=== PATIENT | female | born 1990 | race African-American/Black ===

== ENCOUNTER → 2016-10-28 | Outpatient (CLI) | payer BC ==
[2006-05-05 08:00] VITALS: TEMP 98.2
[~2016-10-28] MED LIST: ACNE MED; ATARAX 10MG10 MG/TAB PO; CARAFATE 1GM1 G PO; DESYREL 50MG50 MG PO; FLEXERIL10 MG PO; LORTAB 5/500 501 TAB PO; MACRODANTIN100 PO; MYRBETR50MG PO; NO HOME MEDICATIONS; NORCO 325 MG-51 TAB PO; NORCOELIX PO; PHENERGAN 25 TA25 MG PO; PHENERGAN25 MG RC; PRILOTC PO; PROTONIX 40MG T40 MG PO; PYRIDIUM 100MG100 MG PO; SENOKOT S 50 MG1 TAB PO; ZANTAC 150MG T150 MG PO; ZOFRAN 4MG T4 MG/TAB PO
== END ==
LOC: COL.RAD 16:23
DX: R10.84 Generalized abdominal pain (principal); D37.6 Neoplasm of uncertain behavior of liver, gallbladder and bile ducts; M54.89 Other dorsalgia; M43.06 Spondylolysis, lumbar region

== ENCOUNTER 2016-11-12 13:29 | Day surgery (SDC) | payer BC ==
[2008-12-11 17:18] VITALS: BP 118/71
[~2016-11-12] VITALS: Ht 162.6 cm; Wt 66.6 kg
[~2016-11-12 13:29] MED LIST changes: -ATARAX 10MG10 MG/TAB PO; -CARAFATE 1GM1 G PO; -DESYREL 50MG50 MG PO; -MACRODANTIN100 PO; -MYRBETR50MG PO; -NORCOELIX PO; -PRILOTC PO; -PROTONIX 40MG T40 MG PO; -PYRIDIUM 100MG100 MG PO; -SENOKOT S 50 MG1 TAB PO; -ZANTAC 150MG T150 MG PO; -ZOFRAN 4MG T4 MG/TAB PO
[2016-11-12 15:20] VITALS: BP 128/85; PULSE 85; TEMP 98.3
[2016-11-12] MEDS ORDERED: PRILOTC PO (15:22)
[2016-11-12] MEDS ORDERED: CARAFATE 1GM1 G PO (15:23)
[2016-11-12 16:15] VITALS: BP 115/86; PULSE 91; TEMP 98.2
[2016-11-12] MEDS ORDERED: MACRODANTIN100 PO (16:26)
[2016-11-12] MEDS ORDERED: SENOKOT S 50 MG1 TAB PO (16:27)
[2016-11-12] MEDS ORDERED: PYRIDIUM 100MG100 MG PO (16:28)
[2016-11-12] MEDS ORDERED: NORCO 325 MG-51 TAB PO (16:28)
[2016-11-12 16:30] VITALS: BP 124/78; PULSE 97
[2016-11-12 16:45] VITALS: BP 127/79; PULSE 95
== END 2016-11-12 17:31 | disposition home or self-care (01) ==
LOC: SDCO 13:29
DX: R31.0 Gross hematuria (principal); N32.89 Other specified disorders of bladder; R10.2 Pelvic and perineal pain; R30.0 Dysuria; Z87.440 Personal history of urinary (tract) infections
CPT/HCPCS: J0690; J1100; J2175; J2405; J2704; J3010; J7120; Q9967

== ENCOUNTER 2017-04-07 11:02 | Day surgery (SDC) | payer BC ==
[2008-12-11 17:18] VITALS: BP 118/71
[~2017-04-07] VITALS: Ht 167.6 cm; Wt 76.4 kg
[2017-04-07] VITALS (9 sets, daily range): BP systolic 119–136; BP diastolic 68–86; PULSE 51–73; TEMP 98–98.5
[~2017-04-07 11:02] MED LIST changes: +CARAFATE 1GM1 G PO; +MACRODANTIN100 PO; +PRILOTC PO; +PYRIDIUM 100MG100 MG PO; +SENOKOT S 50 MG1 TAB PO
[2017-04-07] MEDS ORDERED: ZANTAC 150MG T150 MG PO (11:28)
[2017-04-07] MEDS ORDERED: DESYREL 50MG50 MG PO (11:28)
[2017-04-07] MEDS ORDERED: ATARAX 10MG10 MG/TAB PO (11:29)
[2017-04-07] MEDS ORDERED: PROTONIX 40MG T40 MG PO (11:29)
[2017-04-07] MEDS ORDERED: MYRBETR50MG PO (11:30)
[2017-04-08 01:26] VITALS: BP 143/82; PULSE 68; TEMP 98.4
[2017-04-08 05:06] VITALS: BP 120/64; PULSE 81; TEMP 98.3
[2017-04-08 09:26] VITALS: BP 150/97; PULSE 65; TEMP 97.9
[2017-04-08 13:56] VITALS: BP 118/72; PULSE 79; TEMP 99
[2017-04-08] MEDS ORDERED: NORCOELIX PO (15:01)
[2017-04-08] MEDS ORDERED: ZOFRAN 4MG T4 MG/TAB PO (15:02)
== END 2017-04-08 17:20 | disposition home or self-care (01) ==
LOC: SDCO 11:02 → SURG 18:05 → SDCO 04-08 17:20
DX: D36.0 Benign neoplasm of lymph nodes (principal); K21.9 Gastro-esophageal reflux disease without esophagitis; K44.9 Diaphragmatic hernia without obstruction or gangrene; F32.9 Major depressive disorder, single episode, unspecified
CPT/HCPCS: OP; A9284; C1713; J0690; J1170; J1885; J2405; J2550; J2704; J2710; J3010; J7120

== ENCOUNTER 2018-09-29 16:38 | Emergency (ER) | payer BC ==
[2008-12-11 17:18] VITALS: BP 118/71
[~2018-09-29] VITALS: Ht 162.6 cm; Wt 59.1 kg
[~2018-09-29 16:38] MED LIST changes: +ATARAX 10MG10 MG/TAB PO; +DESYREL 50MG50 MG PO; +MYRBETR50MG PO; +NORCOELIX PO; +PROTONIX 40MG T40 MG PO; +ZANTAC 150MG T150 MG PO; +ZOFRAN 4MG T4 MG/TAB PO
[2018-09-29 16:43] VITALS: TEMP 97.8
[2018-09-29] MEDS ORDERED: DESYREL 100MG100 MG PO (17:24)
[2018-09-29] MEDS ORDERED: PROZAC40 MG PO (17:25)
[2018-09-29] MEDS ORDERED: ATARAX 10MG10 MG/TAB PO (17:25)
[2018-09-29] MEDS ORDERED: INDERAL80 MG PO (17:26)
[2018-09-29] MEDS ORDERED: NORVASC 10MG10 MG PO (17:26)
[2018-09-29] MEDS ORDERED: TOFRANIL 10MG T10 MG PO (17:27)
[2018-09-29] MEDS ORDERED: ADDERALL10 MG PO (17:27)
[2018-09-29] MEDS ORDERED: WELLBUTRIN XL150 MG PO (17:28)
[2018-09-29 18:03] LABS: COLLECTION METHOD CLEAN CATCH
[2018-09-29 18:14] LABS: BASO % 0.5 % (0.0-2.0); EOS # 0.1 (0.0-0.7); EOS % 0.9 % (0-4.0); GRAN # 4.3 (1.4-6.5); GRAN % 67.5 % (42.2-75.2); HEMOGLOBIN 12.4 g/dl (12.5-16.0); LYMPH # 1.4 (1.2-3.4); LYMPH % 21.7 % (20.0-51.0); MEAN CELL VOLUME 88 fl (80.0-100.0); MEAN CORPUSCULAR HEMOGLOBIN 30 pg (27.0-31.0); MEAN CORPUSCULAR HGB CONC 34 g/dl (33.0-37.0); MEAN PLATELET VOLUME 9.3 fl (7.4-10.4); MONO # 0.6 (0.1-0.6); MONO % 8.9 % (1.7-9.3); PLATELET COUNT 296 K/mm3 (130-400); RED BLOOD COUNT 4.15 M/mm3 (4.10-5.30)
[2018-09-29 18:16] LABS: HEMATOCRIT 36.6 % (37.0-47.0); MUCOUS Present /lpf; PH 5 (5-8); SQUAMOUS EPITHELIAL 0-2 /hpf; URINE APPEARANCE Clear; URINE BACTERIA None Seen /hpf; URINE BILIRUBIN Negative (NEGATIVE); URINE BLOOD Negative (NEGATIVE); URINE CALCIUM OXALATE CRYSTAL Present /hpf; URINE COLOR Yellow; URINE GLUCOSE Negative (NEGATIVE); URINE KETONE Negative (NEGATIVE); URINE LEUKOCYTE ESTERASE Negative (NEGATIVE); URINE NITRATE Negative (NEGATIVE); URINE PROTEIN(semi-quant) 1+ (NEGATIVE)
[2018-09-29 18:29] LABS: ALANINE AMINOTRANSFERASE 18 U/L (9-52); ALBUMIN 4.3 gm/dL (3.5-5.0); ALKALINE PHOSPHATASE 61 U/L (50-136); ANION GAP 8 mmol/L (7-16); AST,SGOT 23 U/L (15-37); BILIRUBIN,TOTAL 0.4 mg/dL (0.0-1.0); BLOOD UREA NITROGEN 10 mg/dL (7-17); C-REACTIVE PROTEIN < 0.5 mg/dL (0.0-0.9); CALCIUM 9.3 mg/dL (8.4-10.2); CARBON DIOXIDE 31 mmol/L (22-30); CHLORIDE 100 mmol/L (98-107); CREATININE, serum 0.85 mg/dL (0.52-1.25); GLUCOSE 92 mg/dL (74-106); LIPASE 16 U/L (23-300); POTASSIUM 3.3 mmol/L (3.4-5.0); SODIUM 139 mmol/L (137-145); TOTAL PROTEIN 7.7 gm/dL (6.4-8.2)
[2018-09-29] MEDS ORDERED: ZOFRAN 4MG T4 MG/TAB PO (19:11)
[2018-09-29] MEDS ORDERED: FLAGYL500 MG PO (19:11)
[2018-09-29] MEDS ORDERED: BENTYL 20MG20 MG/TAB PO (19:11)
[2018-09-29 19:12] VITALS: BP 126/95; PULSE 65
== END 2018-09-29 19:17 | disposition home or self-care (01) ==
LOC: COL.ER 16:38
PROVIDERS: Emergency Medicine
DX: N76.0 Acute vaginitis (principal); R11.2 Nausea with vomiting, unspecified; B96.89 Other specified bacterial agents as the cause of diseases classified elsewhere; K21.9 Gastro-esophageal reflux disease without esophagitis; F32.9 Major depressive disorder, single episode, unspecified; F41.9 Anxiety disorder, unspecified; F90.9 Attention-deficit hyperactivity disorder, unspecified type; I10 Essential (primary) hypertension
CPT/HCPCS: J1885; J2405

== ENCOUNTER → 2018-10-28 | Outpatient (CLI) | payer BC ==
[~2018-10-28] MED LIST changes: +ADDERALL10 MG PO; +BENTYL 20MG20 MG/TAB PO; +DESYREL 100MG100 MG PO; +FLAGYL500 MG PO; +INDERAL80 MG PO; +NORVASC 10MG10 MG PO; +PROZAC40 MG PO; +TOFRANIL 10MG T10 MG PO; +WELLBUTRIN XL150 MG PO
== END ==
LOC: COL.RAD 10:30
DX: K76.89 Other specified diseases of liver (principal)

== ENCOUNTER → 2018-12-29 | Outpatient (CLI) | payer BC | LOC: COL.RAD 12:20 | DX: Z01.818 Encounter for other preprocedural examination (principal); M26.69 Other specified disorders of temporomandibular joint; Z98.890 Other specified postprocedural states ==

== ENCOUNTER 2020-04-21 13:45 | Emergency (ER) | payer BC ==
[2008-12-11 17:18] VITALS: BP 118/71
[~2020-04-21] VITALS: Ht 162.6 cm; Wt 65.9 kg
[2020-04-21 13:50] VITALS: TEMP 98.7
[2020-04-21] MEDS ORDERED: PRINZIDE 12.5 M1 TA1 PO (14:14)
[2020-04-21 14:24] LABS: BASO # 0.1 (0.0-0.2); BASO % 0.6 % (0.0-2.0); EOS # 0.1 (0.0-0.7); EOS % 0.8 % (0-4.0); GRAN # 7.9 (1.4-6.5); GRAN % 73.9 % (42.2-75.2); HEMATOCRIT 39.6 % (37.0-47.0); HEMOGLOBIN 13.2 g/dl (12.5-16.0); LYMPH # 1.9 (1.2-3.4); LYMPH % 17.2 % (20.0-51.0); MEAN CELL VOLUME 88 fl (80.0-100.0); MEAN CORPUSCULAR HEMOGLOBIN 29 pg (27.0-31.0); MEAN CORPUSCULAR HGB CONC 33 g/dl (33.0-37.0); MEAN PLATELET VOLUME 9.8 fl (7.4-10.4); MONO # 0.7 (0.1-0.6); MONO % 6.7 % (1.7-9.3); PLATELET COUNT 368 K/mm3 (130-400); RED BLOOD COUNT 4.51 M/mm3 (4.10-5.30); REDCELL DISTRIBUTION WIDTH-CV 12.7 % (11.5-14.5)
[2020-04-21 14:30] LABS: ALANINE AMINOTRANSFERASE 15 U/L (4-34); ALBUMIN 4.5 gm/dL (3.5-5.0); ALKALINE PHOSPHATASE 73 U/L (50-136); ANION GAP 11 mmol/L (7-16); AST,SGOT 26 U/L (15-37); BILIRUBIN,TOTAL 0.6 mg/dL (0.0-1.0); BLOOD UREA NITROGEN 11 mg/dL (7-17); CALCIUM 9.4 mg/dL (8.4-10.2); CARBON DIOXIDE 30 mmol/L (22-30); CHLORIDE 100 mmol/L (98-107); CREATININE, serum 0.98 (0.52-1.25); GLUCOSE 97 mg/dL (74-106); POTASSIUM 3.3 mmol/L (3.4-5.0); SODIUM 140 mmol/L (137-145); TOTAL PROTEIN 7.7 gm/dL (6.4-8.2)
[2020-04-21 14:52] LABS: TROPONIN-I < 0.012 ng/mL (0.000-0.035)
[2020-04-21 15:24] VITALS: BP 136/100; PULSE 74
== END 2020-04-21 15:32 | disposition home or self-care (01) ==
LOC: COL.ER 13:45
PROVIDERS: Emergency Medicine
DX: M94.0 Chondrocostal junction syndrome [Tietze] (principal); I10 Essential (primary) hypertension; Z32.02 Encounter for pregnancy test, result negative
CPT/HCPCS: J1885

== ENCOUNTER 2021-01-06 00:49 | Inpatient (IN) | payer BC ==
[~2021-01-06] VITALS: Ht 162.6 cm; Wt 68.7 kg
[2021-01-06] VITALS (118 sets, daily range): BP systolic 143–158; BP diastolic 103–116; PULSE 76–87; TEMP 97.7–98.5; O2SAT 99–100
[~2021-01-06 00:49] MED LIST changes: +ABILIFY30 MG PO; +ALDACTONE50 MG PO; +MOTRIN 600600 MG/TAB PO; +PRINZIDE 12.5 M1 TA1 PO
[2021-01-06 01:05] LABS: BASO # 0.1 (0.0-0.2); BASO % 0.4 % (0.0-2.0); EOS # 0.1 (0.0-0.7); EOS % 0.8 % (0-4.0); GRAN # 8.7 (1.4-6.5); GRAN % 65.3 % (42.2-75.2); HEMATOCRIT 38.7 % (37.0-47.0); LYMPH # 3.1 (1.2-3.4); LYMPH % 23.5 % (20.0-51.0); MEAN CELL VOLUME 85 fl (80.0-100.0); MEAN CORPUSCULAR HEMOGLOBIN 29 pg (27.0-31.0); MEAN CORPUSCULAR HGB CONC 34 g/dl (33.0-37.0); MEAN PLATELET VOLUME 9.3 fl (7.4-10.4); MONO # 1.2 (0.1-0.6); MONO % 8.8 % (1.7-9.3); PLATELET COUNT 405 K/mm3 (130-400); RED BLOOD COUNT 4.54 M/mm3 (4.10-5.30); REDCELL DISTRIBUTION WIDTH-CV 12.9 % (11.5-14.5)
[2021-01-06 01:16] LABS: ALANINE AMINOTRANSFERASE 20 U/L (4-34); ALBUMIN 4.5 gm/dL (3.5-5.0); ALKALINE PHOSPHATASE 90 U/L (50-136); ANION GAP 9 mmol/L (7-16); AST,SGOT 27 U/L (15-37); BILIRUBIN,TOTAL 0.3 mg/dL (0.0-1.0); BLOOD UREA NITROGEN 8 mg/dL (7-17); CALCIUM 8.7 mg/dL (8.4-10.2); CARBON DIOXIDE 29 mmol/L (22-30); CHLORIDE 102 mmol/L (98-107); CREATININE, serum 0.65 (0.52-1.25); GLUCOSE 103 mg/dL (74-106); MAGNESIUM 1.9 mg/dL (1.6-2.3); SODIUM 140 mmol/L (137-145); TOTAL PROTEIN 8.2 gm/dL (6.4-8.2)
[2021-01-06 01:26] LABS: POTASSIUM 2.9 mmol/L (3.4-5.0)
[2021-01-06 01:30] LABS: TROPONIN-I < 0.012 ng/mL (0.000-0.035)
[2021-01-06 01:49] LABS: COLLECTION METHOD CLEAN CATCH
[2021-01-06 01:55] LABS: PH 7 (5-8); SQUAMOUS EPITHELIAL 0-2 /hpf; URINE APPEARANCE Clear; URINE BACTERIA None Seen /hpf; URINE BILIRUBIN Negative (NEGATIVE); URINE BLOOD Negative (NEGATIVE); URINE COLOR Yellow; URINE GLUCOSE Negative (NEGATIVE); URINE KETONE Negative (NEGATIVE); URINE LEUKOCYTE ESTERASE Negative (NEGATIVE); URINE NITRATE Negative (NEGATIVE); URINE PROTEIN(semi-quant) Negative (NEGATIVE); URINE UROBILINOGEN Negative (NEGATIVE)
[2021-01-06] MEDS ORDERED: EMGALITY120 MG/1 M SQ (03:07)
[2021-01-06] MEDS ORDERED: ALDACTONE 100M100 MG PO (03:08)
--- NOTE | 2021-01-06 07:20 | NUR ---
RECEIVED REPORT FROM MIREYA ZIMMERMAN. PT SITTING UP IN BED PLAYING ON PHONE. PT ON RA. VSS. CALL LIGHT WITHIN REACH. PHONE AND MENU PROVIDED TO ORDER BREAKFAST. PT VERBALIZED UNDERSTANING ON USE.
--- NOTE | 2021-01-06 07:58 | NUR ---
ATTEMPTED TO CONTACT DR BRAGA WITH CONSULT. NO ANSWER AT THIS TIME.
--- NOTE | 2021-01-06 09:31 | NUR ---
ATTEMPTED TO NOTIFY DR BRAGA OF CONSULT AGAIN, NO ANSWER.
--- NOTE | 2021-01-06 09:31 | NUR ---
SPOKE TO DR WILKINS ABOUT PT'S HOME MED EMGALITY DUE TODAY AND PT'S REQUEST FOR SOMETHIGN STRONG THAN TYLENOL FOR CURRENT HEADACHE. DR WILKINS AT BEDSIDE FOR ASSESSMENT.
--- NOTE | 2021-01-06 11:30 | NUR ---
REPORT GIVEN TO MIREYA ARELLANO ON MEDICAL. PT TO [facility] TO 319 VIA ON RA. AWAITING COMPLETION OF US PROCEDURE IN PROGRESS AT THIS TIME. RN AWARE. ALL PERSONAL BELONGINGS SENT WITH PT.
--- NOTE | 2021-01-06 12:15 | NUR ---
Pt arrives to medical unit rm 319 from ICU via WC, awake and alert, oriented x 4, denies pain at this time. IVF's infusing per orders through left AC without s/s of complications. Physical assessment unremarkable. No further needs reported. Call light in reach.
--- NOTE | 2021-01-06 13:01 | NUR ---
SW Met with patient in room on floor 319. Patient plan is to return home with family. Patient reports that she resides locally and works for the [employer]. Patient reports that her primary is Dr. Santana Lopez. Patient indicated that she has blood pressure medications that she receives from him and has regular check ups, last upa was 2 months ago. Friend support is Noris Dalton . Patient reports that she will start with a Kidney Specialist but not sure of provider name. Patient shares that she has family supports and not concerns with medicaitons or needing any DME supports. Does not have a POA. Will follow for care supports.
--- NOTE | 2021-01-06 16:32 | NUR ---
Pt expresses concern about not having BP monitored as frequently as in ICU. This nurse explains routine vital orders compared to ICU monitoring and also encourages pt to call and ask if feeling like the BP is high and needs checked in between routine times. Pt verbalizes understanding.
[2021-01-07] VITALS (7 sets, daily range): BP systolic 128–154; BP diastolic 87–123; PULSE 66–89; TEMP 97.7–98.4
--- NOTE | 2021-01-07 01:13 | NUR ---
Shift assessment completed. Patient alert and oriented. Patient denies SOB, N/V, headache, or dizziness. Patient reports some chest tightness which has started since yesterday. Patient denies any pain meds at this time. K+ 3.7 this afternoon. K+ rplaced per protocol tonight. All scheduled meds given per OCT. Call light within reach. Will continue to monitor.
[2021-01-07 06:48] LABS: BASO # 0.1 (0.0-0.2); BASO % 0.5 % (0.0-2.0); EOS # 0.1 (0.0-0.7); EOS % 0.6 % (0-4.0); GRAN # 8.7 (1.4-6.5); GRAN % 72.9 % (42.2-75.2); HEMOGLOBIN 13.5 g/dl (12.5-16.0); LYMPH # 2.2 (1.2-3.4); MEAN CELL VOLUME 87 fl (80.0-100.0); MEAN CORPUSCULAR HEMOGLOBIN 29 pg (27.0-31.0); MEAN CORPUSCULAR HGB CONC 33 g/dl (33.0-37.0); MEAN PLATELET VOLUME 9.5 fl (7.4-10.4); MONO # 0.8 (0.1-0.6); MONO % 6.9 % (1.7-9.3); PLATELET COUNT 406 K/mm3 (130-400); RED BLOOD COUNT 4.72 M/mm3 (4.10-5.30); REDCELL DISTRIBUTION WIDTH-CV 13.3 % (11.5-14.5)
[2021-01-07 07:00] LABS: CALCIUM 9.3 mg/dL (8.4-10.2); CREATININE, serum 0.72 (0.52-1.25); POTASSIUM 3.9 mmol/L (3.4-5.0)
[2021-01-07] MEDS ORDERED: LOPRESSOR 550 MG/TAB PO (09:17)
--- NOTE | 2021-01-07 09:19 | NUR ---
Patient complaining of chest pressure and increased SOA, states she is starting to feel nauseated. Gutierrez PRITCHETT in room at this time. Stat EKG ordered, notified RAD of EKG.
[2021-01-07 11:39] LABS: URINE TOTAL VOLUME 3600 mL
--- NOTE | 2021-01-07 18:23 | NUR ---
Patient doing well throughout the day, states she continues to have chest pressure throughout the day, no change from previous feeling. However does state it is less severe than this AM. Denies SOA or nausea. Patient denies further needs at this time. Will report off to shift supervisor melting.
--- NOTE | 2021-01-07 19:15 | NUR ---
Received report from Manasa. Seen patient awake in bed. Denies needs at this time.
--- NOTE | 2021-01-07 20:15 | NUR ---
Patient reports being nauseous again. Offered Zofran but she said it doesn't work for her. Phenergan give instead. Patient is for Metanephrines urine 24 hour. Manasa GOMES endorsed that the preservative needed for the urine collection is and lab said that it will be available gal. Called lab to confirm and asked if I can start the urine collection and have the preservative added tomorrow and they said that it should be collected with the preservative and not to be added later on.
[2021-01-08 03:45] VITALS: BP 144/94; PULSE 81; TEMP 98.1
--- NOTE | 2021-01-08 06:19 | NUR ---
Patient denies chest tightness. She reports having mild nausea this morning but refuse medication at this time.
[2021-01-08 06:39] LABS: HEMATOCRIT 41.6 % (37.0-47.0); HEMOGLOBIN 13.5 g/dl (12.5-16.0); MEAN CELL VOLUME 89 fl (80.0-100.0); MEAN CORPUSCULAR HEMOGLOBIN 29 pg (27.0-31.0); MEAN CORPUSCULAR HGB CONC 33 g/dl (33.0-37.0); MEAN PLATELET VOLUME 9.6 fl (7.4-10.4); PLATELET COUNT 426 K/mm3 (130-400); REDCELL DISTRIBUTION WIDTH-CV 13.4 % (11.5-14.5)
[2021-01-08 06:43] LABS: CALCIUM 9.2 mg/dL (8.4-10.2); CREATININE, serum 0.86 (0.52-1.25); POTASSIUM 3.8 mmol/L (3.4-5.0)
--- NOTE | 2021-01-08 07:48 | NUR ---
REPORT FROM AKUA BLANCO.
[2021-01-08 08:18] VITALS: BP 132/98; PULSE 79; TEMP 97.8
[2021-01-08] MEDS ORDERED: ADVOCATE BLOOD1 EAC1 MC (10:01)
--- NOTE | 2021-01-08 10:38 | NUR ---
PT RESTING IN BED. ASSESSMENTS COMPLETE, AM MEDS GIVEN ORDERED, AMLODIPINE HELD PER PARAMETERS. PT DENIES NEEDS AT THIS TIME.
[2021-01-08] MEDS ORDERED: MIDAMOR 5MG TAB5 MG PO (10:58)
[2021-01-08] MEDS ORDERED: ZESTRIL 20MG TA20 MG PO (10:59)
--- NOTE | 2021-01-08 10:59 | NUR ---
24 HR URINE CANCELLED PER JOCELINE HERNANDEZ
[2021-01-08 11:22] VITALS: BP 135/89; PULSE 64; TEMP 98
[2021-01-09 13:15] LABS: RENIN,PLASMA <0.6 ng/mL/h (())
== END 2021-01-08 12:30 | disposition home or self-care (01) | DRG 305 ==
LOC: COL.ER 00:49 → ICU 03:00 → MEDICAL 12:22
PROVIDERS: Emergency Medicine; Internal Medicine Nephrology; Nurse Practitioner; Nurse Practitioner Family; Physician Assistant; Student in an Organized Health Care Education/Training Program; ADMIT Internal Medicine
DX: I16.0 Hypertensive urgency (principal); E87.6 Hypokalemia; I10 Essential (primary) hypertension; F41.9 Anxiety disorder, unspecified; F32.9 Major depressive disorder, single episode, unspecified; G43.909 Migraine, unspecified, not intractable, without status migrainosus; K21.9 Gastro-esophageal reflux disease without esophagitis; R07.89 Other chest pain; D72.829 Elevated white blood cell count, unspecified
CPT/HCPCS: 99233-AI; 99239; J0360; J1650; J2405; J2550; J7030; J7050; Q9967

== ENCOUNTER → 2021-05-16 | Outpatient (CLI) | payer BC ==
[~2021-05-16] MED LIST changes: +ADVOCATE BLOOD1 EAC1 MC; +ALDACTONE 100M100 MG PO; +EMGALITY120 MG/1 M SQ; +LOPRESSOR 550 MG/TAB PO; +MIDAMOR 5MG TAB5 MG PO; +ZESTRIL 20MG TA20 MG PO
== END ==
LOC: COL.RAD 08:01
DX: Z01.818 Encounter for other preprocedural examination (principal); M26.642 Arthritis of left temporomandibular joint; M26.612 Adhesions and ankylosis of left temporomandibular joint
CPT/HCPCS: Q9967

== ENCOUNTER → 2022-06-23 | Outpatient (CLI) | payer BC | LOC: COL.RAD 12:46 | DX: M26.69 Other specified disorders of temporomandibular joint (principal) | CPT/HCPCS: Q9967 ==

== ENCOUNTER → 2022-09-28 | Outpatient (CLI) | payer BC | LOC: MC.RAD 08:45 | DX: N63.10 Unspecified lump in the right breast, unspecified quadrant (principal); Z80.3 Family history of malignant neoplasm of breast ==

== ENCOUNTER → 2022-09-29 | Outpatient (CLI) | payer BC | LOC: MC.RAD 09:41 | DX: N63.10 Unspecified lump in the right breast, unspecified quadrant (principal) ==

== ENCOUNTER 2023-08-22 21:28 | Emergency (ER) | payer BC ==
[~2023-08-22] VITALS: Ht 165.1 cm; Wt 77.3 kg
[2023-08-22 21:33] VITALS: TEMP 97.5
[2023-08-22 21:52] LABS: BASO # 0.1 K/mm3 (0.0-0.2); BASO % 0.7 % (0.0-2.0); EOS # 0.2 K/mm3 (0.0-0.7); EOS % 1.7 % (0.0-4.0); GRAN # 6.9 K/mm3 (1.4-6.5); GRAN % 68.2 % (42.2-75.2); HEMATOCRIT 38.1 % (37.0-47.0); HEMOGLOBIN 12.3 g/dl (12.5-16.0); LYMPH # 2.1 K/mm3 (1.2-3.4); LYMPH % 20.8 % (20.0-51.0); MEAN CELL VOLUME 87 fl (80.0-100.0); MEAN CORPUSCULAR HEMOGLOBIN 28 pg (27-31); MEAN CORPUSCULAR HGB CONC 32 g/dl (33.0-37.0); MEAN PLATELET VOLUME 9.2 fl (7.4-10.4); MONO # 0.8 K/mm3 (0.1-0.6); MONO % 7.7 % (1.7-9.3); PLATELET COUNT 389 K/mm3 (130-400); REDCELL DISTRIBUTION WIDTH-CV 13.9 % (11.5-14.5)
[2023-08-22 21:58] LABS: INR 1.1 (0.8-3.0); PROTHROMBIN TIME 11.9 SECONDS (9.7-12.8)
[2023-08-22 22:00] LABS: PARTIAL THROMBOPLASTIN TIME 34.7 SECONDS (26.0-37.0)
[2023-08-22 22:06] LABS: ALBUMIN 3.9 gm/dL (3.5-5.0); BILIRUBIN,TOTAL 0.1 mg/dL (0.2-1.2); CALCIUM 9.6 mg/dL (8.4-10.2); CREATININE, serum 0.81 mg/dL (0.57-1.11); TOTAL PROTEIN 7.8 gm/dL (6.2-8.1)
[2023-08-22 22:11] LABS: POTASSIUM 2.9 mmol/L (3.5-4.5)
[2023-08-22 22:26] LABS: THYROID STIMULATING HORMONE 1.641 uIU/mL (0.350-4.940); TROPONIN-I 0.018 ng/mL (0.00-0.033)
[2023-08-23 01:42] LABS: COLLECTION METHOD CLEAN CATCH
[2023-08-23 01:48] LABS: URINE APPEARANCE Clear (CLEAR/HAZY); URINE BLOOD Negative (NEGATIVE); URINE COLOR Yellow (YELLOW); URINE GLUCOSE Negative (NEGATIVE); URINE KETONE Negative (NEGATIVE); URINE NITRATE Negative (NEGATIVE); URINE PROTEIN(semi-quant) Negative (NEGATIVE); URINE UROBILINOGEN 0.2 E.U/dL (0.2-1.0)
[2023-08-23 02:03] LABS: SQUAMOUS EPITHELIAL 0-2 /hpf (0-10); URINE BACTERIA Rare /hpf (NONE SEEN); URINE RBC None Seen /hpf (0-2)
[2023-08-23 02:46] VITALS: BP 149/111; PULSE 82
== END 2023-08-23 02:50 | disposition home or self-care (01) ==
LOC: COL.ER 21:28
PROVIDERS: Emergency Medicine
DX: I10 Essential (primary) hypertension (principal); E87.6 Hypokalemia; R07.89 Other chest pain; Z91.148 Patient's other noncompliance with medication regimen for other reason
CPT/HCPCS: J0360; J0780; J1200; J1790; J2765; J7040